=== PATIENT | female | born 1960 | race Caucasian/White ===

== ENCOUNTER → 2021-04-09 | Outpatient (CLI) | payer BC ==
[~2021-04-09] MED LIST: HYDR1TAB PO
--- NOTE | 2021-04-09 16:05 | Diagnostic Imaging Report ---
INDICATION: Low back pain and left leg numbness. EXAMINATION: Lumbar spine without contrast, 04/09/2021. FINDINGS: There is normal height and alignment of the vertebral bodies. Tip of the conus unremarkable in appearance and location. L1-L2: Unremarkable. L2-L3: There is disc desiccation with bilateral facet and ligamentum flavum hypertrophy. There is a left paracentral annular tear. There is no central stenosis. There is mild to moderate left neural foraminal narrowing with mild narrowing on the right. L3-L4: There is disc desiccation with bilateral facet and ligamentum flavum hypertrophy. There is no central stenosis. There is moderate bilateral neural foraminal narrowing. L4-L5: There is disc desiccation with a mild broad-based bulging disc and a left paracentral annular tear. There is bilateral facet and ligamentum flavum hypertrophy. There is no central stenosis. Mild narrowing of the left lateral recess is noted. There is moderate bilateral neural foraminal narrowing. L5-S1: There is disc desiccation with a mild broad-based bulging disc left paracentral. There is bilateral facet omentum flavum hypertrophy. There is no significant central stenosis. The neural foramina appear patent. Visualized intra-abdominal structures demonstrate multiple large cystic changes within the hilar region of both kidneys, left worse than right. These are likely parapelvic cysts with a component of hydronephrosis not excluded. Dedicated imaging of the kidneys recommended. There is an incompletely imaged simple appearing cystic area in the left adnexa, presumably ovarian in nature. IMPRESSION: 1. Multilevel diffuse degenerative disease, as described above. 2. Abnormalities within the visualized kidneys, see above discussion. Dictated by: Dictated on workstation # [id number]
== END ==
LOC: RAD 14:00
DX: M51.17 Intervertebral disc disorders with radiculopathy, lumbosacral region (principal); M48.061 Spinal stenosis, lumbar region without neurogenic claudication
CPT/HCPCS: 72148

== ENCOUNTER → 2021-06-11 | Outpatient (CLI) | payer BC ==
--- NOTE | 2021-06-11 13:00 | Diagnostic Imaging Report ---
INDICATION: Left hip pain for one month. TIME OF EXAM: 12:29 PM 2 views left hip were obtained. Femoral acetabular alignment is normal. There appear to be postsurgical changes left hip intertrochanteric as well as subtrochanteric region. No fractures are seen. No periosteal reaction or bone destruction is identified. Left-sided rami are intact. IMPRESSION: Postop changes. No acute abnormality is detected. Dictated by: Dictated on workstation # [id number]
== END ==
LOC: RAD 12:17
PROVIDERS: ATTEND Registered Nurse
DX: M70.62 Trochanteric bursitis, left hip (principal); M54.16 Radiculopathy, lumbar region
CPT/HCPCS: 73502

== ENCOUNTER 2022-02-27 05:32 | Outpatient (CLI) | payer BC ==
[~2022-02-27] VITALS: Ht 162.6 cm; Wt 88.0 kg
[2022-02-27] MEDS ORDERED: LOSA50TA63 PO (15:27)
[2022-02-27] MEDS ORDERED: LEVO100C4 PO (15:27)
[2022-02-27] MEDS ORDERED: LOVA10TA PO (15:27)
[2022-02-27] MEDS ORDERED: LOSA100T57 PO (15:35)
== END 2022-02-27 15:37 | disposition home or self-care (01) ==
LOC: PREOP 05:32
PROVIDERS: ATTEND Surgery
DX: Z01.818 Encounter for other preprocedural examination (principal); Z12.11 Encounter for screening for malignant neoplasm of colon

== ENCOUNTER 2022-03-06 10:07 | Day surgery (SDC) | payer BC ==
--- NOTE | 2022-03-05 16:55 | HISTORY AND PHYSICAL ---
ATTENDING PRIMARY CARE PHYSICIAN: Dr. Benji Roger. INDICATION: The patient is a 61-year-old female who was referred over to us for a colonoscopy. Her last colonoscopy was in 2013, which was normal. She reports that she has been having some issues with constipation and pain with bowel movements, but denied any blood in her stool. She denies any nausea or vomiting or any weight changes as well as no family history of colon cancer. PAST MEDICAL HISTORY: Hypothyroidism, hyperlipidemia, hypertension. SURGICAL HISTORY: Removal of cyst from her left arm 2013, removal of cyst of left hip 1978. ALLERGIES: NO KNOWN DRUG ALLERGIES. MEDICATIONS: Losartan 100 mg daily. Simvastatin 10 mg daily. Levothyroxine 50 mcg daily. SOCIAL HISTORY: Negative for tobacco smoke. Rare for alcohol. FAMILY HISTORY: Mother, breast cancer. Grandparent, myocardial infarction. VITAL SIGNS: Blood pressure is 145/84. Current weight is 194 pounds at 5 feet 4 inches. REVIEW OF SYSTEMS: This is a well-nourished female in no acute distress. She is not experiencing any shortness of breath or difficulty breathing. No chest pain, palpitations or diaphoresis. No nausea or vomiting. She denies any diarrhea, but does report constipation and abdominal pain as well as pain with bowel movement. No red blood per rectum. No dark tarry stools. No fever or chills. No recent weight loss. All other review of systems negative. PHYSICAL EXAMINATION: CHEST: Clear. Good breath sounds bilaterally. HEART: Regular. No murmurs. EXTREMITIES: No lower extremity edema. Negative Homans sign. HEENT: No scleral icterus. No cervical lymphadenopathy. ABDOMEN: Soft, nontender, nondistended. SKIN: Warm, dry and pink. NEUROLOGIC: Awake, alert and oriented x3. A 61-year-old female with abdominal pain as well as constipation, who was referred over to us in need of a colonoscopy. At this time, we will proceed with scheduling her for a colonoscopy. Job ID: [id number] DocumentID: [id number] Dictated Date: 03/05/2022 12:45:59 Information Lead Date: 03/05/2022 16:53:00 Dictated By: HAYDEN MILIAN APRN
[~2022-03-06] VITALS: Ht 163 cm; Wt 88.0 kg
[~2022-03-06 10:07] MED LIST changes: +LEVO100C4 PO; +LOSA100T57 PO; +LOSA50TA63 PO; +LOVA10TA PO
[2022-03-06] MEDS ORDERED: LACTATED RINGERS 1,000 ML IV STA (10:20)
[2022-03-06] MEDS ORDERED: MIDAZOLAM 2 MG/2 ML (VERSED) VIAL ONE (10:23)
[2022-03-06] MEDS ORDERED: PROPOFOL INJECTION 50 ML IV ONE (10:23)
[2022-03-06] MEDS ORDERED: SIMV10TA26 PO (10:26)
[2022-03-06] MEDS ORDERED: LIDOCAINE JELLY 2% 6 ML SYRINGE MM PRN (10:30)
[2022-03-06 10:35] VITALS: BP 138/87
--- NOTE | 2022-03-06 11:13 | Progress Note-Pre Operative ---
Pre-Operative Progress Note Date of Available H&P: Mar 06, 2022 Date H&P Reviewed: Mar 06, 2022 Time H&P Reviewed: 10:30 History & Physical: No changes noted Pre-Operative Diagnosis: screening o NU YOON MD Mar 06, 2022 11:13
--- NOTE | 2022-03-06 11:14 | Discharge Inst-Surgical ---
D/C Lap Instructions-KARRIE Follow Up Activity as tolerated High Fiber Diet 25g or more per day Avoid Alcohol, Caffeine, Spicy Connell and Acid foods. Drink 64 fluid oz or more of fluids per day. Symptoms to Report: Fever over 101 degree F, Nausea/Vomiting If any problems/questions: Contact your physician or go to Emergency Room NU YOON MD Mar 06, 2022 11:14
[2022-03-06] MEDS ORDERED: ONDANSETRON 4 MG/2 ML (SDV) Z0FRAN IVP PRN (11:15)
[2022-03-06] MEDS ORDERED: ONDANSETRON 4 MG (ZOFRAN) ORAL DISSOLVE TAB PO PRN (11:15)
[2022-03-06] MEDS ORDERED: LIDOCAINE JELLY 2% 6 ML SYRINGE ONE ×2 (11:19→11:20)
[2022-03-06 11:40] VITALS: BP 145/74
[2022-03-06 11:45] VITALS: BP 160/73
--- NOTE | 2022-03-06 11:46 | Progress Note-Post Operative ---
Post-Operative Progess Note Surgeon (s)/Recorder Helper Gravity Prospecting (s) Surgeon NU YOON MD Recorder Helper Gravity Prospecting: none Pre-Operative Diagnosis screening colo Post-Operative Diagnosis mild chronic stage 2 ext and int hemorrhoids, mild sigmoid diverticulosis. Procedure & Operative Findings Date of Procedure 03/06/22 Procedure Performed/Findings colonoscopy Anesthesia Type mac Estimated Blood Loss Estimated blood loss (mL): minimal Specimens/Packing Specimens Removed none NU YOON MD Mar 06, 2022 11:46
[2022-03-06 12:11] VITALS: BP 166/87
--- NOTE | 2022-03-06 18:57 | OPERATIVE REPORT ---
DATE OF SERVICE: 03/06/2022 ATTENDING PRIMARY CARE PHYSICIAN: Benji Roger DO. PREOPERATIVE DIAGNOSIS: Screening colonoscopy. POSTOPERATIVE DIAGNOSES: 1. Mild chronic stage II, external and internal hemorrhoids. 2. Mild sigmoid diverticulosis. PROCEDURE: Colonoscopy. SURGEON: Nu Yoon M.D. ANESTHESIA: Monitored anesthesia care. ESTIMATED BLOOD LOSS: Minimal. FINDINGS: 1. Mild chronic stage II, external and internal hemorrhoids. 2. Mild sigmoid diverticulosis. DISPOSITION: The patient tolerated the procedure well. INDICATIONS: The patient is a 61-year-old female referred over to us for a screening colonoscopy. Her last one was around 2013 and she believes that to be normal. She states she is otherwise doing well, does not report any major issues with diarrhea nor constipation as well as no red blood per rectum, nor any dark tarry stools. She also does not report any family history of colon cancer. DESCRIPTION OF PROCEDURE: The patient was brought to the endoscopy suite and laid in the left lateral decubitus position. After adequate IV pain and sedative medications and monitored anesthesia care, digital rectal examination was performed. Mild chronic stage II, external and internal hemorrhoids identified, which are not actively edematous nor inflamed and no bleeding. Normal sphincter tone was felt and there were no palpable masses. The endoscope was then intubated into the anus and rectum was gently insufflated. Endoscope was then advanced to the valves of Sanchez of the rectum with no polyps or neoplasms identified. Near the sigmoid colon, mild sigmoid diverticulosis identified. We then proceeded through the remainder of the descending, transverse and ascending colon to the cecum, which were normal. There were no polyps or any neoplasms identified throughout the colon or rectum. The endoscope was then slowly withdrawn, taking a second look and suctioning all residual air with no additional findings. The patient tolerated the procedure well. We will recommend a high-fiber diet with incorporation of a fiber supplement, which are equal to exceed 25 grams daily to promote soft stools on a daily basis, which should prevent further propagation of hemorrhoids as well as diverticulosis as well as the complications associated with them. No polyps were identified and she may wait 10 years for her next colonoscopy. Job ID: [id number] DocumentID: [id number] Dictated Date: 03/06/2022 11:40:10 [employer] Date: 03/06/2022 18:55:00 Dictated By: NU YOON MD
== END 2022-03-06 12:17 | disposition home or self-care (01) ==
LOC: ENDO 10:07
PROVIDERS: ATTEND Surgery
DX: Z12.11 Encounter for screening for malignant neoplasm of colon (principal); K57.30 Diverticulosis of large intestine without perforation or abscess without bleeding; K64.1 Second degree hemorrhoids; K64.8 Other hemorrhoids; Z79.899 Other long term (current) drug therapy